=== PATIENT | female | born 1935 | race Caucasian/White ===

== ENCOUNTER 2019-02-06 21:35 | Emergency (ER) | payer MEDICARE ==
[2019-02-06 22:04] LABS: ABSOLUTE BASOPHILS # (AUTO) 0.1 10^3/uL (0.0-0.2); ABSOLUTE EOSINOPHILS # (AUTO) 0.4 10^3/uL (0.0-0.6); ABSOLUTE LYMPHOCYTES (AUTO) 2.6 10^3/uL (0.5-4.7); ABSOLUTE MONOCYTES (AUTO) 0.9 10^3/uL (0.1-1.4); ABSOLUTE NEUT (AUTO) 4.1 10^3/uL (1.7-8.2); BASOPHILS % (AUTO) 0.6 % (0-2); EOSINOPHILS % (AUTO) 5.1 % (0-6); HEMATOCRIT 36.3 % (36.0-47.0); HEMOGLOBIN 12.2 g/dL (12.0-15.5); LYMPHOCYTES % (AUTO) 32.3 % (13-45); MEAN CORPUSCULAR HEMOGLOBIN 29.9 pg (27.0-33.4); MEAN CORPUSCULAR HGB CONC 33.6 g/dL (32.0-36.0); MEAN CORPUSCULAR VOLUME 89 fl (80-97); MONOCYTES % (AUTO) 11.1 % (3-13); PLATELET COUNT 302 10^3/uL (150-450); RED BLOOD COUNT 4.08 10^6/uL (3.72-5.28); RED CELL DISTRIBUTION WIDTH 12.7 % (11.5-14.0); SEGMENTED NEUTROPHILS % (AUTO) 50.9 % (42-78); TOTAL CELLS COUNTED % (AUTO) 100 %; WHITE BLOOD COUNT 8.1 10^3/uL (4.0-10.5)
[2019-02-06 22:17] LABS: APPEARANCE,URINE CLEAR; BILIRUBIN,URINE NEGATIVE (NEGATIVE); COLOR,URINE STRAW; GLUCOSE, URINE NEGATIVE (NEGATIVE); KETONES,URINE TRACE mg/dL (NEGATIVE); LEUKOCYTE ESTERASE,URINE SMALL (NEGATIVE); NITRITE,URINE NEGATIVE (NEGATIVE); PROTEIN,URINE NEGATIVE (NEGATIVE); URINE SPECIFIC GRAVITY 1.002; UROBILINOGEN,URINE NEGATIVE mg/dL (<2.0)
[2019-02-06 22:20] LABS: ALBUMIN 4.1 g/dL (3.5-5.0); ALKALINE PHOSPHATASE 55 U/L (38-126); ANION GAP 11 (5-19); ASPARTATE AMINO TRANSFERASE 34 U/L (14-36); BILIRUBIN,DIRECT 0.1 mg/dL (0.0-0.4); BILIRUBIN,TOTAL 0.4 mg/dL (0.2-1.3); BLOOD UREA NITROGEN 5 mg/dL (7-20); CALCIUM 9.2 mg/dL (8.4-10.2); CARBON DIOXIDE 26 mmol/L (22-30); CHLORIDE 97 mmol/L (98-107); CREATINE KINASE 250 U/L (30-135); GLUCOSE 103 mg/dL (75-110); POTASSIUM 3.4 mmol/L (3.6-5.0); TOTAL PROTEIN 7.2 g/dL (6.3-8.2)
[2019-02-06 22:37] LABS: CREATINE KINASE MB 4.39 ng/mL (<4.55); NT PRO BNP 150 pg/mL (<450); TROPONIN I < 0.012 ng/mL
--- NOTE | 2019-02-06 23:00 | RADIOLOGY REPORT (SQ) ---
EXAM DESCRIPTION: [facility]: XR CHEST 1 VIEW CLINICAL HISTORY: 83 years Female, shortness of breath COMPARISON: None. FINDINGS: Lungs are hyperinflated. No acute infiltrates. No pneumothorax or pleural effusion. Mild aortic calcifications are noted. Heart size is normal. Bony structures are unremarkable. IMPRESSION: 1. Hyperinflation, suggesting COPD. 2. No acute infiltrates. 3. Mild aortic atherosclerosis.
[2019-02-06] MEDS ORDERED: PHENAZOPYRIDINE HCL 200 MG TABLET PO ONE (23:27)
[2019-02-06] MEDS ORDERED: POTASSI CL 20 MEQ/NS 1L 1,000 ML IV ONE (23:29)
--- NOTE | 2019-02-06 23:34 | ER Document Report ---
ED General - General Chief Complaint: Shortness Of Breath Stated Complaint: SHORTNESS OF BREATH Time Seen by Provider: 02/06/19 23:03 Primary Care Provider: EMILEE MELGOZA MD [NO LOCAL MD] - Follow up in 3-5 days RAFAEL BENTON MD [Primary Care Provider] - Follow up as needed Mode of Arrival: Medic Information source: Patient - HPI Notes: Patient is a 85-year-old female history of previous TIAs, thyroid trouble, COPD with previous inhaler use but is currently not taking, atrial fibrillation presents the emergency department with report that she recently had some constipation and was seen by her regular practitioner who started her on Linzess 3 days ago and she noted some mild heartburn after taking this and had slight diarrhea. She started taking Prilosec. The patient reports that earlier today when she was exercising for a walk at 1930 she developed dyspnea with some chest heaviness and felt lightheaded. She denies any nausea or vomiting. She has reported some dysuria and frequency over the course of the last week. Medications Eliquis, losartan, amlodipine and levothyroxine. Of the past medical history patient states that 8 years ago she had a chemical stress test which was negative but she did not tolerate the chemical stress test agent. Her production line technician is Dr. Melgoza in [facility]. She also reports allergies to Levaquin and Bactrim antibiotics. Currently she is without any complaint of chest pain or difficulty breathing. The patient previously was on inhalers, currently is not. Patient denies any significant recent cough or congestion. - Related Data Allergies/Adverse Reactions: Iodinated Contrast Media [IV Dye, Iodine Containing] Allergy (Severe, Verified 0 12/03/12 19:20) Swelling of Throat iodine [Iodine] Allergy (Severe, Verified 12/03/12 19:20) Swelling of Throat Sulfa (Sulfonamide Antibiotics) Allergy (Intermediate, Verified 12/03/12 19:20) Hives Past Medical History - Social History Smoking Status: Never Smoker Frequency of alcohol use: None Drug Abuse: None Lives with: Family Family History: Reviewed & Not Pertinent, Hypertension Patient has suicidal ideation: No Patient has homicidal ideation: No - Past Medical History Cardiac Medical History: Reports: Hx Atrial Fibrillation, Hx Hypertension Pulmonary Medical History: Reports: Hx Asthma Neurological Medical History: Reports: Hx Cerebrovascular Accident Past Surgical History: Reports: Hx Cardiac Catheterization, Hx Cholecystectomy, Hx Hysterectomy, Hx Orthopedic Surgery - Lumbar spine surgery - Immunizations Hx Diphtheria, Pertussis, Tetanus Vaccination: No Review of Systems - Review of Systems -: Yes All other systems reviewed and negative Physical Exam - Vital signs Vitals: Temp 97.9 F 02/06/19 21:36 - Notes Notes: PHYSICAL EXAMINATION: GENERAL: Well-appearing, well-nourished and in no acute distress. HEAD: Atraumatic, normocephalic. EYES: Pupils equal round and reactive to light, extraocular movements intact, conjunctiva are normal. ENT: Nares patent, oropharynx clear without exudates. Moist mucous membranes. NECK: Normal range of motion, supple without lymphadenopathy LUNGS: Breath sounds clear to auscultation bilaterally and equal. No wheezes rales or rhonchi. HEART: Regular rate and rhythm without murmurs ABDOMEN: Soft, nontender, nondistended abdomen. No guarding, no rebound. No masses appreciated. Female : deferred Musculoskeletal: Normal range of motion, no pitting or edema. No cyanosis. Negative Homans. No palpable cord. NEUROLOGICAL: Cranial nerves grossly intact. Normal speech, normal gait. Normal sensory, motor exams PSYCH: Normal mood, normal affect. SKIN: Warm, Dry, normal turgor, no rashes or lesions noted. Course - Re-evaluation Re-evalutation: 02/06/19 23:33 Urine culture was obtained. Patient was given IV Rocephin for urinary tract infection. Patient will had a borderline low potassium and sodium with evidence for ketosis in the urine and mild dehydration. The patient was given normal saline with 20 of KCl infusion. Patient was given Pyridium for her urinary discomfort. I question a reaction to the patient's Linzess, which can cause heartburn and diarrhea and some of the patient's symptoms. The patient shows no evidence for pyelonephritis or sepsis. Initial and repeat troponin are negative with no evidence for acute NC, but the patient has been 8 years since last cardiac stress test and will be instructed to follow-up with her production line technician later this week. Patient will drink plenty of fluids. She will stand up slowly. No exercise until she sees her production line technician. Patient notes Linzess will be discontinued and she will be started on MiraLAX. No evidence for pneumonia or pneumothorax or congestive heart failure or renal dysfunction or anemia. 02/07/19 02:59 - Vital Signs Vital signs: Temp Pulse Resp BP Pulse Ox 97.8 F 16 192/72 H 97 02/07/19 02:16 02/07/19 02:04 02/07/19 01:01 02/07/19 02:04 - Laboratory Result Diagrams: 02/06/19 21:55 02/06/19 21:55 Laboratory results interpreted by me: 02/06/19 02/06/19 21:55 21:57 Sodium 133.6 L Potassium 3.4 L Chloride 97 L BUN 5 L Creatinine 0.44 L Creatine Kinase 250 H Urine Ketones TRACE H Urine Blood MODERATE H Ur Leukocyte Esterase SMALL H - EKG Interpretation by Me EKG shows normal: Sinus rhythm Additional EKG results interpreted by me: 02/06/19 23:33 EKG is interpreted by ak showed normal sinus rhythm heart rate of 91. There is no gross evidence for acute NC or ischemia noted there is no significant changes compared to previous EKG reviewed from 12/03/2012. Discharge - Discharge Clinical Impression: Dehydration Urinary tract infection Qualifiers: Urinary tract infection type: acute cystitis Hematuria presence: without hematuria Qualified Code(s): N30.00 - Acute cystitis without hematuria Chest pain Qualifiers: Chest pain type: other chest pain Qualified Code(s): R07.89 - Other chest pain Condition: Stable Disposition: HOME, SELF-CARE Instructions: Cephalexin ([facility]), Constipation ([facility]), Chest Pain of Unclear Cause ([facility]), Urinary Anesthetic Agent ([facility]), Urinary Tract Infection ([facility]) Additional Instructions: Stop Linzess, and start MiraLAX as needed for constipation. Drink plenty of flu ids. Follow-up with Dr. Melgoza this week for evaluation of your chest pain. Do not exercise until you have followed up and been cleared by Dr. Melgoza. Prescriptions: Cephalexin Monohydrate [Keflex 500 mg Capsule] 500 mg PO BID 7 Days capsule Polyethylene Glycol 3350 [Miralax] 1 cap PO DAILY #527 powder Phenazopyridine HCl [Pyridium 100 Mg Tablet] 100 mg PO TID #10 tablet Referrals: RAFAEL BENTON MD [Primary Care Provider] - Follow up as needed EMILEE MELGOZA MD [NO LOCAL MD] - Follow up in 3-5 days
[2019-02-06 23:56] LABS: FREE T4 (FREE THYROXINE) 1.99 ng/dL (0.78-2.19)
[2019-02-06] MEDS ORDERED: CEFTRIAXONE 1 GM/D5W RTU 1 GM/50 ML RTUPB IV ONE (23:59)
[2019-02-07 00:10] LABS: THYROID STIMULATING HORMONE 0.78 uIU/mL (0.47-4.68)
[2019-02-07 03:12] VITALS: BP 152/69
--- NOTE | 2019-02-07 07:33 | EKG REPORT ---
SEVERITY:- ABNORMAL ECG - SINUS RHYTHM PROBABLE LEFT ATRIAL ABNORMALITY RIGHT BUNDLE BRANCH BLOCK : Confirmed by: Geo Barron MD 07-Feb-2019 07:31:52
== END 2019-02-07 03:12 | disposition home or self-care (01) ==
LOC: ER 21:35
DX: N30.00 Acute cystitis without hematuria (principal); E86.0 Dehydration; R07.89 Other chest pain; R06.02 Shortness of breath; R06.00 Dyspnea, unspecified; R07.9 Chest pain, unspecified; R42 Dizziness and giddiness; R30.0 Dysuria; R35.0 Frequency of micturition; J44.9 Chronic obstructive pulmonary disease, unspecified; I48.91 Unspecified atrial fibrillation; I10 Essential (primary) hypertension; Z79.899 Other long term (current) drug therapy; Z79.01 Long term (current) use of anticoagulants; Z88.1 Allergy status to other antibiotic agents
CPT/HCPCS: 93005; 99285; 96361; 96365; 36415; 87086; 84439; 82553; 82550; 84443; 85025; 80053; 81001; 84484; 83880; 71045; 93010; A9270; J3480; J0696; J3490